=== PATIENT | male | born 1960 | race Caucasian/White ===

== ENCOUNTER 2018-10-06 21:08 | Emergency (ER) | payer OTHER ==
[2018-10-06] MEDS ORDERED: IOPAMIDOL (ISOVUE 370) 100 ML BTL IV ONE (21:20)
[2018-10-06] MEDS ORDERED: predniSONE 20 MG TAB PO ONE (21:27)
[2018-10-06] MEDS ORDERED: valACYclovir 500 MG TAB PO ONE (21:28)
--- NOTE | 2018-10-06 21:34 | EDPHY ---
H & P Time Seen by Provider: 10/06/18 21:15 HPI/ROS: HPI Right-sided facial drooping. 58-year-old male with family. He presents the emergency department with complaint of right-sided facial drooping, food falling out of the right side of his mouth police eating and difficulty shutting his right eye since 9: 00 a.m. This morning. He denies any other focal neurological complaints. Denies any loss of sensation or weakness in his extremities. No changes in his vision. His speech is been normal according to his . His cognition has been normal. He has had no difficulty walking. Denies headache. ROS: Constitutional: No fever, no chills. As above. Eyes: No discharge. No changes in vision. ENT: No sore throat. No nasal congestion or rhinorrhea. Respiratory: No cough. No shortness of breath. Cardiac: No chest pain, no palpitations. Gastrointestinal: No abdominal pain, no vomiting, no diarrhea. Genitourinary: No hematuria. No dysuria or increased frequency with urination. Musculoskeletal: No back pain. No neck pain. No myalgias or arthralgias. Skin: No rashes. Neurological: No headache. As above. Past medical history: Includes type 2 diabetes. He is on metformin. He also takes Lipitor. Primary care is through [facility]. Social history: Nonsmoker. No alcohol. Here with his and son. Physical Exam: General Appearance: Alert, no distress. This patient is responding to questions appropriately and in full sentences. No dysarthria, or dysphagia. This patient appears well-hydrated and well-nourished. Eyes: Pupils equal and round and reactive to light at 3-2 mm bilaterally, no pallor or injection. No lid edema, erythema or injection. No nystagmus. No photophobia. ENT, Mouth: Mucous membranes are moist. The pharyngeal tissues are unremarkable. No edema or swelling. No asymmetry suggestive of abscess. No erythema or exudates. External auditory canals and tympanic membranes are clear and unremarkable bilaterally. Respiratory: There are no retractions, lungs are clear to auscultation with good air movement bilaterally. Cardiovascular: Regular rate and rhythm. No murmur. Gastrointestinal: Abdomen is soft and nontender, no masses, bowel sounds normal. No focal tenderness at McBurney's point. No Ro sign. Neurological: Motor sensory function is grossly intact in myotomes in dermatomes of the bilateral upper lower extremities. He has a right-sided upper and lower facial droop. Otherwise cranial nerves are normal. Gait is normal. Cerebellar function, [id number], [id number] is normal. Skin: Warm and dry, no rashes. Musculoskeletal: Neck is supple and nontender. Extremities are symmetrical. All joints range without pain or impingement. Psychiatric: No agitation. No depression. Database: EKG: Imaging: Procedures: Emergency department course: Triage vital signs reviewed. He is mildly hypertensive. Vital signs are otherwise normal. This patient's presentation is consistent with a Boo's palsy. His evaluation was done in the company of a meter tester. I explained what this was. Explained that he was not having a cerebral vascular accident. He was given 1000 mg of oral valacyclovir as well as 60 mg of oral prednisone in the emergency department. I will prescribe him these medications. He will be discharged and referred on follow-up to Neurology in his primary care physician at [facility]. He feels comfortable with this plan. I also discussed meth a cellulose eyedrops to keep his cornea moist and patching his eye at night. He has full understanding of his condition and therapy for this. He understands his follow-up. All of his questions were answered. Return to emergency department precautions were reviewed with him. All of his questions were answered. He was discharged from the emergency department in good condition with family. Differential Diagnosis: The differential diagnosis on this patient includes but is not limited to Boo' s palsy. CVA, tick borne illness, Guillain-[place] Sosa Jeff variant unlikely. This represents a partial list of diagnoses considered. These considerations are based on history, physical exam, past history, reassessment and diagnostic testing. Smoking Status: Never smoked Constitutional: Initial Vital Signs Temperature (C) 36.8 C 10/06/18 21:20 Heart Rate 89 10/06/18 21:20 Respiratory Rate 16 10/06/18 21:20 Blood Pressure 146/89 H 10/06/18 21:20 O2 Sat (%) 98 10/06/18 21:20 O2 Delivery Mode Room Air Allergies/Adverse Reactions: No Known Allergies Allergy (Unverified 10/06/18 21:28) Home Medications: Medication Instructions Recorded Lipitor 10/06/18 Metformin HCl 10/06/18 Valacyclovir HCl [Valtrex] 1,000 mg PO TID #21 tab 10/06/18 predniSONE [prednisone 20mg (RX)] 60 mg PO DAILY #9 tab 10/06/18 Medical Decision Making - Data Points Laboratory Results: 10/06/18 10/06/18 10/06/18 21:15 21:15 21:15 WBC Pending RBC Pending Hgb Pending Hct Pending MCV Pending MCH Pending MCHC Pending RDW Pending Plt Count Pending MPV Pending Neut % (Auto) Pending Lymph % (Auto) Pending [place] % (Auto) Pending Eos % (Auto) Pending Baso % (Auto) Pending Nucleat RBC Rel Count Pending Absolute Neuts (auto) Pending Absolute Lymphs (auto) Pending Absolute Monos (auto) Pending Absolute Eos (auto) Pending Absolute Basos (auto) Pending Absolute Nucleated RBC Pending Immature Gran % Pending Immature Gran # Pending PT Pending INR Pending APTT Pending Sodium Pending Potassium Pending Chloride Pending Carbon Dioxide Pending Anion Gap Pending BUN Pending Creatinine Pending Estimated GFR Pending Glucose Pending Calcium Pending Departure - Departure Disposition: Home, Routine, Self-Care Clinical Impression: Boo's palsy Condition: Good Instructions: Boo Palsy (ED) Additional Instructions: Read and follow provided instructions. Follow-up with your primary care physician at [facility] or Neurology in 1-2 days for re-evaluation as discussed and without fail. Take medication as prescribed through entire course of treatment. Use artificial tears which can be obtained at the pharmacy. To drops to your right eye every hour to keep your cornea moist. As discussed, patch your right eye shut at night while sleeping. Return to the emergency department for worsening symptoms, loss of sensation or weakness in your extremities, difficulty speaking or other serious concerns. Referrals: [facility],. [Clinic] - As per Instructions Tavo Alegria MD [Medical Doctor] - As per Instructions Prescriptions: predniSONE [prednisone 20mg (RX)] 60 mg PO DAILY #9 tab Valacyclovir HCl [Valtrex] 1,000 mg PO TID #21 tab
[2018-10-06 21:54] VITALS: BP 127/81
== END 2018-10-06 21:54 | disposition home or self-care (01) ==
DX: G51.0 Bell's palsy (principal); E11.9 Type 2 diabetes mellitus without complications; Z79.84 Long term (current) use of oral hypoglycemic drugs
CPT/HCPCS: 82435-PO; 82565-PO; 82947-PO; 84132-PO; 84295-PO; 84520-PO; 85014-PO; J7512; Q9967